=== PATIENT | female | born 1935 | race Caucasian/White ===

== ENCOUNTER 2016-07-05 10:30 | Emergency (ER) | payer MEDICARE, MEDICAID ==
[2016-07-05] MEDS ORDERED: IOPAMIDOL 370 (76%) 100 ML VIAL IV ONE (10:31)
[2016-07-05] MEDS ORDERED: SODIUM CHLORIDE 0.9% 1,000 ML ONE (10:59)
[2016-07-05 11:02] LABS: ABSOLUTE NEUTROPHIL COUNT 5.7 K/mm3 (1.8-7.7); BASO # 0.1 K/mm3 (0.0-0.2); BASO % 0.7 % (0.2-1.0); EOS # 0.2 (0.0-0.5); HEMATOCRIT 43.1 % (37.0-47.0); HEMOGLOBIN 14.5 gm/l (12.0-16.0); IMM NEUT% 0.2 % (0-1); LYMPH # 1.4 (1.0-4.8); LYMPH % 17.9 % (15-45); MEAN CELL VOLUME 84.3 fl (81.0-99.0); MEAN CORPUSCULAR HEMOGLOBIN 28.4 pg (27.0-31.0); MEAN CORPUSCULAR HGB CONC 33.6 g/dl (33.0-37.0); MONO # 0.6 (0.0-0.8); MONO % 7.7 % (4-12); NEUT % 70.5 % (43-75); PLATELET COUNT 263 K/mm3 (130-400); RED CELL DISTRIBUTION WIDTH 12.6 % (11.5-14.5)
[2016-07-05 11:16] LABS: ALB/GLOB RATIO 1.1 (>1.0); ALBUMIN 3.8 gm/dL (3.5-5.7); CALCIUM 9.2 mg/dL (8.6-10.3)
[2016-07-05 11:19] LABS: URINE BILIRUBIN NEGATIVE (NEGATIVE); URINE BLOOD 2+ (NEGATIVE); URINE GLUCOSE (UA) NEGATIVE (NEGATIVE); URINE LEUKOCYTE ESTERASE 1+ (NEGATIVE); URINE NITRITE NEGATIVE (NEGATIVE); URINE PROTEIN NEGATIVE (NEGATIVE); URINE UROBILINOGEN NORMAL (0-1 mg/dl)
[2016-07-05 11:28] LABS: URINE APPEARANCE HAZY; URINE COLOR YELLOW
[2016-07-05 11:31] LABS: URINE BACTERIA 1+; URINE MUCUS 1+
--- NOTE | 2016-07-05 12:10 | CT ---
Exam: CT abdomen and pelvis with contrast COMPARISON: 03/08/[address] chest 03/26/2016 INDICATION: Low abdominal pain. TECHNIQUE: CT examination of the abdomen and pelvis was obtained following the administration of 100 mL Isovue-370 intravenous contrast. FINDINGS: There is focal short segment wall thickening and mild inflammatory changes within the left lower quadrant involving the sigmoid colon. Given the underlying diverticulosis, findings are compatible with acute uncomplicated diverticulitis. There is no bowel obstruction, free air or free intraperitoneal fluid. Uterus is present and unremarkable. There is no adnexal mass. Small amount of gas is seen within the urinary bladder. Minor diffuse urinary bladder wall thickening is noted. Hepatic steatosis. Gallbladder is absent. Extrahepatic biliary ductal dilatation has not significantly changed since the 2013 CT. There is no significant intrahepatic biliary ductal dilation. Spleen is normal in size. Pancreas is within normal limits. There is no adrenal mass. Subcentimeter low-density lesions are again appreciated within the kidneys and remain too small to characterize but are likely cysts. Nonobstructing calculi are seen within the lower pole of the right kidney. There is no hydronephrosis or solid renal mass. Atheromatous but nonaneurysmal abdominal aorta and iliac arteries. There is chronic atelectasis or scarring within the right middle lobe. No worrisome lytic or blastic osseous lesion is identified. Multilevel degenerative disc disease and facet arthropathy is present within the lower lumbar spine. Advanced degenerative disc disease is seen within the lower thoracic spine. Levoconvex scoliosis of the thoracolumbar spine is appreciated. Degenerative changes are also noted about the pubic symphysis. IMPRESSION: 1. Acute uncomplicated sigmoid diverticulitis. 2. Small amount of gas is seen within the urinary bladder in there is mild diffuse urinary bladder wall thickening. Correlate for cystitis. 3. Chronic stable incidental findings as above, including post cholecystectomy changes, atheromatous aorta, bilateral renal cysts and degenerative changes in the bones. Report was uploaded to the EMR at 1205 hours 07/05/2016.
== END 2016-07-05 13:24 | disposition home or self-care (01) ==
LOC: ED 10:30
DX: K57.92 Diverticulitis of intestine, part unspecified, without perforation or abscess without bleeding (principal); I10 Essential (primary) hypertension; G89.29 Other chronic pain; M54.9 Dorsalgia, unspecified; Z87.891 Personal history of nicotine dependence; Z79.899 Other long term (current) drug therapy; Z79.82 Long term (current) use of aspirin
CPT/HCPCS: 83690; 85025; 87086; 80053; 81001; 74177; 99284 ×2; J7030; Q9967